=== PATIENT | female | born 1955 | race Caucasian/White ===

== ENCOUNTER → 2016-11-09 | Outpatient (CLI) | payer BC ==
[~2016-11-09] MED LIST: ALL DAY ALLERGY10 M2 PO; CALCIUM + D 6001 TA1 PO; MELATONIN5 M1 PO; METOPROLOL TAR25 MG PO; METOPROLOL TART25 GM MC; METOPROLOL TART25 MG PO; MULTI VITAMIN1 EACH PO; VITAMIN C500 M1 PO; VITAMIN D-32000 UNI1 PO; VITAMIN D1000 UNI1 PO; ZOVIRAX800 MG PO
--- NOTE | ~2016-11-09 | CT55 ---
[facility] A Service of [facility] & [facility] RADIOLOGY TEXT RESULTS PATIENT: MARCIA SALDIVAR [facility] UNIT #: [id number] AGE: [address]: Drake Armijo MD SEX: F ORDER DR: [id number] [facility] [address] [facility]. [place], [place] [address] [id number] O MR#: [id number] Acc #: [id number] NAME: MARCIA SALDIVAR. : 1955 SEX: F STUDY DATE/TIME: 11/09/2016 10:02 UNIT: [facility] ROOM: STUDY DESCRIPTION: CT Chest W Con Attending Physician: Drake Armijo M.D. Referring Physician: Drake Armijo M.D. Ordering Physician: Drake Armijo M.D. Primary Care Physician: Jackson Keita M.D. MEDICAL IMAGING REPORT This report is preliminary unless electronic signature is present EXAM CT chest with contrast, 11/09/2016. HISTORY History of breast cancer with bilateral mastectomy, bone metastasis. The patient currently complains of cough. Observation for metastatic disease. Restaging. COMPARISON CT chest with contrast, 08/16/2016. PROCEDURE 5-mm axial images through the chest after IV contrast administration. Sagittal and coronal reformatted images were obtained. This CT exam was performed with one or more of the following radiation dose reduction techniques: automatic exposure control, adjustment of mA and/or kV according to patient size, and iterative reconstruction. SPECIAL NOTE: I was called to see the patient due to IV contrast extravasation within the left antecubital fossa. The technologist reported approximate 50 mL Isovue-370 contrast extravasated. Upon physical examination, there is very mild asymmetric soft tissue swelling in the antecubital fossa region inferiorly, but no abnormal skin discoloration was identified. The patient states pain at the extravasation site. Patient had normal range of motion, normal hand senior compliance officer, normal hand and wrist sensation, and demonstrated normal radial pulses upon my examination. Patient was advised to alternate hot and warm compresses, keep arm elevated, and was given an instructions sheet with potential callback number if she experienced increased pain, increased swelling, skin breakdown changes, or oozing. Patient verbalized understanding. [facility]. [facility] A Service of [facility] RADIOLOGY TEXT RESULTS PATIENT: MARCIA SALDIVAR LOCATION: [facility] : 55 UNIT #: [id number] AGE: [address]: Drake Armijo MD SEX: F ORDER DR: FINDINGS Surgical changes of bilateral mastectomy with bilateral breast prostheses in place. Pathologic adenopathy has developed within the left axilla. A 2.1-cm severe left axillary lymph node previously measured 8 mm. Another 2.2 x 1.7-cm left axillary node previously measured only 7 mm. A new enlarged left supraclavicular lymph node has developed, measuring 1.5 x 1.4 cm. There is mild soft tissue thickening or stranding in the left neck posterior triangle. No right axillary adenopathy is seen. No pathologically enlarged mediastinal or hilar lymph nodes. No pericardial effusion. No pleural effusion. Stable fibrosis or scarring in the right apex, similar to prior exam. No focal suspicious pulmonary nodules are identified. Minimal reticular scarring in the inferolateral right middle lobe, unchanged. Extensive osteosclerotic metastatic disease is seen throughout the imaged cervical, thoracic and upper lumbar spine, sternum, bilateral ribs, clavicles, and right scapula. The osseous findings are not thought to be significantly changed, and no pathologic fracture is identified. IMPRESSION 1. Findings consistent with disease progression in the chest. New pathologically enlarged left axillary and left supraclavicular adenopathy has developed. 2. Stable diffuse osteosclerotic metastatic disease in the chest. 3. CT abdomen and pelvis performed on the same day has been dictated separately. Dictated by... Shantel Ceron M.D. THIS IS AN ELECTRONICALLY VERIFIED REPORT Shantel Ceron M.D. at 11/10/2016 9:40 AM Fransico TD: 11/09/2016 12:01 JOB #: [id number] MEDICAL IMAGING REPORT Page 1 of 1 COPY
--- NOTE | ~2016-11-09 | CT5 ---
[facility] A Service of [facility] & [facility] RADIOLOGY TEXT RESULTS PATIENT: MARCIA SALDIVAR LOCATION: [facility] : 55 UNIT #: [id number] AGE: [address]: Drake Armijo MD SEX: F ORDER DR: [id number] [place] [id number] [facility]. [place], [place] [address] [id number] O MR#: [id number] Acc #: [id number] NAME: MARCIA SALDIVAR. : 1955 SEX: F STUDY DATE/TIME: 11/09/2016 10:02 UNIT: [facility] ROOM: STUDY DESCRIPTION: CT Abdomen W Cont Attending Physician: Drake Armijo M.D. Referring Physician: Drake Armijo M.D. Ordering Physician: Drake Armijo M.D. Primary Care Physician: Jackson Keita M.D. MEDICAL IMAGING REPORT This report is preliminary unless electronic signature is present EXAM CT abdomen with contrast, 11/09/2016 HISTORY Breast cancer status post bilateral mastectomy. Observation metastatic disease. Restaging. Patient complains of cough. COMPARISON CT with contrast, 08/16/2016 PROCEDURE 5.0 mm axial images were acquired from the lung bases through the lesser trochanters after intravenous and enteric contrast administration. Sagittal and coronal reformatted images were obtained. SPECIAL NOTE: The study was requested as CT abdomen only per referring physician. The technologist inadvertently included the pelvis, as well. The CT pelvis portion of the examination is therefore performed at no additional charge to the patient. The [facility] manager pathology has been notified. TECHNIQUE This CT exam was performed with one or more of the following radiation dose reduction techniques: automatic exposure control, adjustment of mA and/or kV according to patient size, and iterative reconstruction. FINDINGS ABDOMEN FINDINGS: Liver, gallbladder, spleen, pancreas, adrenals and kidneys are within normal limits. No pathologically enlarged retroperitoneal or mesenteric lymph nodes are seen, and there is no ascites. The bowel appears grossly nonthickened, nondilated and noninflamed. Subcutaneous nodularity is demonstrated within the anterior abdominal wall bilaterally, favored to represent medical injection sites, STS. [facility] A Service of [facility] & [facility] RADIOLOGY TEXT RESULTS PATIENT: MARCIA SALDIVAR LOCATION: [facility] : 55 UNIT #: [id number] AGE: [address]: Drake Armijo MD SEX: F ORDER DR: with similar findings on the previous examination. PELVIS FINDINGS: No pelvic adenopathy or free fluid is identified. Urinary bladder and rectum are within normal limits. Presumed hysterectomy. Extensive sclerotic metastatic disease is seen throughout the imaged spine, bilateral ribs, pelvis and upper femoral regions consistent with osseous metastatic disease. The bone findings are not thought to be significantly changed since 08/16/2016, and there is no CT evidence of pathologic fracture. IMPRESSION 1. Stable appearance of diffuse osteosclerotic metastatic disease. 2. There is no evidence of metastatic disease within the abdominal or pelvic cavities proper. 3. CT chest performed on the same date has been dictated separately. Dictated by... Shantel Ceron M.D. THIS IS AN ELECTRONICALLY VERIFIED REPORT Shantel Ceron M.D. at 11/10/2016 9:40 AM Aaron TD: 11/09/2016 12:02 JOB #: [id number] MEDICAL IMAGING REPORT Page 1 of 1 COPY
[2016-11-09 15:00] LABS: POC - GFR >60.0 mL/min (>60)
== END | disposition home or self-care (01) ==
LOC: CCAT 08:04
PROVIDERS: Internal Medicine Hematology & Oncology
DX: C79.51 Secondary malignant neoplasm of bone (principal); C77.0 Secondary and unspecified malignant neoplasm of lymph nodes of head, face and neck; C50.411 Malignant neoplasm of upper-outer quadrant of right female breast; C50.412 Malignant neoplasm of upper-outer quadrant of left female breast; Z90.13 Acquired absence of bilateral breasts and nipples
CPT/HCPCS: 71260; 74160; 82565; J1642; Q9967

== ENCOUNTER → 2017-02-02 | Outpatient (CLI) | payer BC ==
--- NOTE | ~2017-02-02 | CT5 ---
[facility] A Service of [facility] RADIOLOGY TEXT RESULTS PATIENT: MARCIA SALDIVAR LOCATION: [facility] : 55 UNIT #: [id number] AGE: [address]: Drake Armijo MD SEX: F ORDER DR: [id number] [place] [id number] O MR#: [id number] Acc #: [id number] NAME: MARCIA SALDIVAR. : 1955 SEX: F STUDY DATE/TIME: 02/02/2017 9:09 UNIT: [facility] ROOM: STUDY DESCRIPTION: CT Abdomen W Cont Attending Physician: Drake Armijo M.D. Referring Physician: Drake Armijo M.D. Ordering Physician: Drake Armijo M.D. Primary Care Physician: Jackson Keita M.D. MEDICAL IMAGING REPORT This report is preliminary unless electronic signature is present. EXAM CT abdomen with contrast INDICATIONS Restaging breast cancer. Observation for metastatic disease. PROCEDURE Contrast-enhanced CT of the abdomen. This CT exam was performed with one or more of the following radiation dose reduction techniques: automatic control, adjustment of mA and/or kV according to patient size, and iterative reconstruction. COMPARISON 11/09/2016 FINDINGS Refer to the separately dictated chest CT for thoracic findings. No liver or splenic lesion. Kidneys adrenal glands pancreas gallbladder are unremarkable. Bowel loops are nondilated. No abdominal lymphadenopathy. Diffuse sclerotic bony metastatic disease is very similar to the previous study. IMPRESSION 1. Stable, diffuse osseous sclerotic metastases. 2. No evidence for soft tissue metastatic disease in the abdomen. 3. Refer to the separately dictated chest CT Dictated by... Dionicio Ly M.D. THIS IS AN ELECTRONICALLY VERIFIED REPORT [facility] A Service of [facility] RADIOLOGY TEXT RESULTS PATIENT: MARCIA SALDIVAR LOCATION: [facility] : 55 UNIT #: [id number] AGE: [address]: Drake Armijo MD SEX: F ORDER DR: Dionicio Ly M.D. at 02/03/2017 7:08 AM BRIAN/nori TD: 02/02/2017 16:06 JOB #: [id number] MEDICAL IMAGING REPORT Page 1 of 1
--- NOTE | ~2017-02-02 | CT55 ---
[facility] A Service of [facility] & [facility] RADIOLOGY TEXT RESULTS PATIENT: MARCIA SALDIVAR LOCATION: [facility] : 55 UNIT #: [id number] AGE: [address]: Drake Armijo MD SEX: F ORDER DR: [id number] [address] [address] [id number] O MR#: [id number] Acc #: [id number] NAME: MARCIA SALDIVAR : 1955 SEX: F STUDY DATE/TIME: 02/02/2017 10:08 UNIT: [facility] ROOM: STUDY DESCRIPTION: CT Chest W Con Attending Physician: Drake Armijo M.D. Referring Physician: Drake Armijo M.D. Ordering Physician: rDake Armijo M.D. Primary Care Physician: Jackson Keita M.D. MEDICAL IMAGING REPORT This report is preliminary unless electronic signature is present. EXAM CT of the chest with contrast INDICATION Metastatic breast cancer, patient was diagnosed in February 2015, breast cancer was located on the right. TECHNIQUE Axial CT images were obtained from the thoracic inlet through the dome of the diaphragm following the administration of intravenous contrast material. This CT exam was performed with one or more of the following radiation dose reduction techniques: Automatic exposure control, adjustment of mA and/or kV according to patient size, and iterative reconstruction. Please see the separately dictated report for findings within the abdomen. FINDINGS 3 mm noncalcified pulmonary nodule seen within the right lower lobe has been stable since January 2015, thus it is benign. There is some tree-in-bud nodularity seen within the right middle lobe, which is also stable when compared to that examination. There is right apical fibrotic change, which I do not think appears significantly changed when compared to the prior studies. There is a pleural-based nodule seen within the left lower lobe measuring about 6 mm in size; I am not convinced I can see this on the prior studies, it may still reflect a benign finding, but attention to it on short-term followup exam in 6 months is suggested. The thyroid gland, trachea and esophagus appear unremarkable. There is no pleural or pericardial effusion. 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 Mediastinal lymph nodes do not appear pathologically enlarged. Patient does have diffuse osseous metastatic disease. I do think there is some increasing sclerosis within the sternum, with an area of sclerosis measuring up to STS. [facility] A Service of [facility] RADIOLOGY TEXT RESULTS PATIENT: MARCIA SALDIVAR LOCATION: [facility] : 55 UNIT #: [id number] AGE: [address]: Drake Armijo MD SEX: F ORDER DR: 1.2 x 1.4 cm on the axial series; previously, this same area measured roughly 7 x [address] of the abdomen, again, will be dictated separately. Patient is status post right axillary dissection and bilateral breast implants are noted. IMPRESSION 1. This patient has a 6 mm pleural-based nodule within the left lower lobe, which is not definitively seen on the prior studies; it may still reflect a benign finding, but I would suggest short-term CT followup in 6 months. Patient has some other areas of scarring within the right lung, which are stable when compared to January 2015, as is a noncalcified pulmonary nodule within the right lower lobe. 2. This patient has widespread osseous metastatic disease. This was also present on the prior examination, but a sclerotic lesion involving the sternum has actually increased in size when compared to the prior exam from October 2016. The possibility that this reflects some progression of osseous metastatic disease is not excluded. Dictated by... Aidee Mcclure M.D. THIS IS AN ELECTRONICALLY VERIFIED REPORT Aidee Mcclure M.D. at 02/03/2017 5:25 PM AFF/psc TD: 02/02/2017 23:33 JOB #: [id number] MEDICAL IMAGING REPORT Page 1 of 1
[2017-02-02 09:20] LABS: POC - CREATININE 0.88 mg/dL (0.44-1.03); POC - GFR >60.0 mL/min (>60)
== END | disposition home or self-care (01) ==
LOC: SCT 09:00
PROVIDERS: Internal Medicine Hematology & Oncology
DX: C50.411 Malignant neoplasm of upper-outer quadrant of right female breast (principal); C79.51 Secondary malignant neoplasm of bone; C77.0 Secondary and unspecified malignant neoplasm of lymph nodes of head, face and neck; C50.412 Malignant neoplasm of upper-outer quadrant of left female breast; R91.1 Solitary pulmonary nodule
CPT/HCPCS: 71260; 74160; 82565; Q9967

== ENCOUNTER → 2017-02-11 | Outpatient (CLI) | payer BC | END | disposition home or self-care (01) | LOC: CECH 10:39 | DX: C50.411 Malignant neoplasm of upper-outer quadrant of right female breast (principal); C79.51 Secondary malignant neoplasm of bone; C77.0 Secondary and unspecified malignant neoplasm of lymph nodes of head, face and neck; C50.412 Malignant neoplasm of upper-outer quadrant of left female breast | CPT/HCPCS: 93306 ==